=== PATIENT | female | born 1940 | race Caucasian/White ===

== ENCOUNTER 2018-10-02 21:45 | Emergency (ER) | payer MEDICARE, BC | END 2018-10-02 23:07 | disposition home or self-care (01) | LOC: SCSER 21:45 | DX: I10 Essential (primary) hypertension (principal); R61 Generalized hyperhidrosis; E11.9 Type 2 diabetes mellitus without complications; E78.00 Pure hypercholesterolemia, unspecified; Z79.899 Other long term (current) drug therapy | CPT/HCPCS: 99283 ==

== ENCOUNTER 2023-04-01 12:40 | Emergency (ER) | payer MEDICARE, BC ==
[2023-04-01] MEDS ORDERED: Iopamidol-370 76% 500 ML MDV (1 ML CHARGE) ONE (13:20)
[2023-04-01] MEDS ORDERED: Ondansetron PF 4 MG/2 ML Vial IVP PRN (14:42)
[2023-04-01] MEDS ORDERED: Ondansetron ODT 4 MG TAB PO PRN (14:42)
[2023-04-01] MEDS ORDERED: Senokot S 8.6-50 MG TAB PO PRN (14:42)
[2023-04-01] MEDS ORDERED: Famotidine/PF 20 mg/2ml Vial SLOW IVP SCH (21:00)
[2023-04-01] MEDS ORDERED: niCARdipine 25 MG in Sodium Chloride 0.9% 250 ML 250 ML IVPB SCH (21:00)
[2023-04-01] MEDS ORDERED: Ondansetron PF 4 MG/2 ML Vial ONE (21:54)
[2023-04-01] MEDS ORDERED: hydrALAZINE 20 MG/ML VIAL SLOW IVP PRN ×2 (22:46→22:47)
[2023-04-01] MEDS ORDERED: niCARdipine 25 MG/10 ML SDV ONE (23:26)
== END 2023-04-02 01:10 | disposition short-term general hospital (02) ==
LOC: ERS 12:40
DX: I61.4 Nontraumatic intracerebral hemorrhage in cerebellum (principal); I10 Essential (primary) hypertension; E78.00 Pure hypercholesterolemia, unspecified; E11.9 Type 2 diabetes mellitus without complications; Z79.899 Other long term (current) drug therapy; Z79.82 Long term (current) use of aspirin
CPT/HCPCS: 36416; 70450; 70496; 71045; 80053; 84484; 85025; 85610; 85730; 96365; 96375; J2405; Q9967

== ENCOUNTER 2024-02-20 12:39 | Outpatient (CLI) | payer MEDICARE | END 2024-02-20 12:40 | disposition home or self-care (01) | LOC: SCSMRI 12:39 | PROVIDERS: ATTEND Radiology Radiation Oncology | DX: Q28.2 Arteriovenous malformation of cerebral vessels (principal); Z98.890 Other specified postprocedural states | CPT/HCPCS: 36415; 70553; 76376; 82565 ==

== ENCOUNTER 2024-05-20 10:37 | Outpatient (CLI) | payer MEDICARE | END 2024-05-20 10:38 | disposition home or self-care (01) | LOC: SCSMRI 10:37 | PROVIDERS: ATTEND Neurological Surgery | DX: Q28.2 Arteriovenous malformation of cerebral vessels (principal); G93.89 Other specified disorders of brain; I67.82 Cerebral ischemia; J34.89 Other specified disorders of nose and nasal sinuses; Z98.890 Other specified postprocedural states | CPT/HCPCS: 70553; 76376 ==

== ENCOUNTER 2024-12-29 11:45 | Outpatient (CLI) | payer MEDICARE | END 2024-12-29 11:46 | disposition home or self-care (01) | LOC: PET 11:45 | PROVIDERS: ATTEND Internal Medicine | DX: R91.8 Other nonspecific abnormal finding of lung field (principal) | CPT/HCPCS: 78815; A9552 ==

== ENCOUNTER 2025-03-19 14:38 | Outpatient (CLI) | payer MEDICARE ==
[2025-03-19 16:03] LABS: Estimated GFR - POC 45.0
== END 2025-03-19 14:39 | disposition home or self-care (01) ==
LOC: SCSMRI 14:38
PROVIDERS: ATTEND Radiology Radiation Oncology
DX: Q28.2 Arteriovenous malformation of cerebral vessels (principal)
CPT/HCPCS: 36415; 70553; 76376; 82565